=== PATIENT | female | born 1945 | race Hispanic/Latino ===

== ENCOUNTER 2018-10-06 06:00 | Day surgery (SDC) | payer MEDICARE ==
[~2018-10-06] VITALS: Ht 154.9 cm; Wt 46.4 kg
[2018-10-06] VITALS (8 sets, daily range): BP systolic 119–157; BP diastolic 71–85
[~2018-10-06 06:00] MED LIST: SODIUM CHLORIDE 0.9% 1000ML 1,000 ML IV ONE
[2018-10-06] MEDS ORDERED: OMEP40CA37 PO (07:23)
[2018-10-06] MEDS ORDERED: CHOL100040 PO (07:23)
[2018-10-06] MEDS ORDERED: TRAM50TA4 PO (07:23)
[2018-10-06] MEDS ORDERED: CARAL PO (07:23)
[2018-10-06] MEDS ORDERED: PRED20TA3 PO (07:23)
[2018-10-06] MEDS ORDERED: METO-391 PO (07:23)
== END 2018-10-06 08:43 | disposition home or self-care (01) ==
LOC: DAH 06:00 → ENDO 06:00
PROVIDERS: ATTEND Internal Medicine
DX: K29.50 Unspecified chronic gastritis without bleeding (principal); K44.9 Diaphragmatic hernia without obstruction or gangrene; R10.13 Epigastric pain; I10 Essential (primary) hypertension; F41.9 Anxiety disorder, unspecified; Z85.118 Personal history of other malignant neoplasm of bronchus and lung; Z90.710 Acquired absence of both cervix and uterus; Z98.890 Other specified postprocedural states; Z79.899 Other long term (current) drug therapy; M19.90 Unspecified osteoarthritis, unspecified site
CPT/HCPCS: 43239; 88305; A4606; J7030